=== PATIENT | female | born 2005 ===

== ENCOUNTER 2024-10-22 11:29 | Emergency (ER) | payer BC, SELFPAY ==
--- NOTE | ~2024-10-22 | US_ITS ---
CLINICAL HISTORY: severe L pelvic pain US pelvis transabdominal and transvaginal with Doppler Comparison: None provided Findings: Anteverted uterus is 6.2 cm length. Normal myometrium. Endometrium 12 mm thickness. Right ovary 3.2 x 2.6 x 2.7 cm. Left ovary 2.6 x 2.2 x 1.6 cm. Normal color Doppler of both ovaries. There is a 2.8 x 1.7 x 2.1 cm simple appearing right-sided paraovarian cyst. No free fluid. IMPRESSION: 1. 2.8 cm right-sided paraovarian cyst of unlikely significance. 2. No acute abnormality of the pelvis. This document has been electronically signed by: Sofya Mccarty MD on 10/22/2024 18:45:08
[2024-10-22 11:43] VITALS: BP 92/59; PULSE 82; RESP 18; TEMP 37.2; O2SAT 99; BMI 19.4
--- NOTE | 2024-10-22 11:45 | ED.GENADULT ---
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 She denies any issues such as dysuria, fevers, diarrhea, vaginal discharge or concern for STI. She reports pain today is much worse - she has nausea and cannot get comfortable. She has no hx of stones or cysts MD complaint: LLQ pain Onset (ago): day(s) (1) Location: abdomen Radiation: non-radiation Severity: severe Quality: stabbing Pain Consistency: constant Relieving factors: none Exacerbating factors: movement Associated symptoms: nausea/vomiting Related Data Previous Rx's ?Medication ?Instructions ?Recorded ibuprofen 600 mg tablet 600 mg PO Q6H PRN pain #30 tabs 10/22/24 ondansetron 4 mg disintegrating 4 mg PO Q8H PRN nausea and 10/22/24 tablet vomiting #20 tabs Allergies Allergy/AdvReac Type Severity Reaction Status Date / Time No Known Allergies Allergy Verified 10/22/24 11:45 Review of Systems Review of Systems: Constitutional : No Weight loss, No Fever, No Chills ENT/Mouth : No sore throat, No Rhinorrhea Eyes: No Swelling, No Redness Cardiovascular : No Chest Pain, No SOB, NoEdema Respiratory : No Cough, No Sputum, No Wheezing Gastrointestinal : Positive Nausea, no Vomiting, no Diarrhea, positive abdominal Pain, No Hematochezia, No Melena Genitourinary : No Dysuria, No Urinary Frequency, No Hematuria, No Urgency Musculoskeletal : No joint pain, No Myalgias, No Joint Swelling Skin : No Skin Lesions, No rash Neuro : No Weakness, No Numbness, No Dizziness, No Headache All other systems reviewed and are negative. [facility] [place] Past Medical History Attestation statement: The following information was validated with the patient. Source: old records reviewed Medical History No pertinent past medical history Social History Social History Smoked in Last 30 Days: No Use of substances other than those prescribed or required for medical reasons: No Advance Directives: No Advance Directives Information Provided: Yes Patient : No Physical Exam ED Vital Signs: Vital Signs - 24 hr 10/22/24 11:43 10/22/24 15:31 10/22/24 16:08 Temperature 98.9 F 98.4 F 98.4 F Pulse Rate 82 85 85 Respiratory Rate 18 16 16 Blood Pressure 92/59 L 114/75 114/75 Pulse Oximetry 99 100 100 Oxygen Delivery Method Room Air Room Air Room Air 10/22/24 18:32 Temperature 98.3 F Pulse Rate 81 Respiratory Rate 16 Blood Pressure 110/73 Pulse Oximetry 100 Oxygen Delivery Method Room Air BMI result Body Mass Index 19.4 Appearance: Alert. Oriented X3. No acute distress. Eyes: Pupils equal, round and reactive to light. ENT: Pharynx normal. Neck: Normal inspection. Neck supple. CVS: Normal heart rate and rhythm. Pulses normal. Respiratory: No respiratory distress. Breath sounds normal. Abdomen: Soft and moderate LLQ pain no rebound Skin: Skin warm and dry. Normal skin color. Normal skin turgor. Extremities: No lower extremity edema. No calf ttp Neuro: Oriented X 3. No motor deficit. No sensory deficit. CN2-12 intact Course Course Course Narrative: This is a rapid medical exam performed by Dima Mcclure NP: Additional HPI, ROS, PE not included below will be deferred to primary provider. Patient is a 19y/o Romanian speaking F presenting to the ED with complaint of LLQ abdominal pain for a few months, but yesterday pain worsened. States pain has been intermittent. Denies association with menses. Nausea without vomiting or diarrhea. Not currently sexually active, denies chance of . Plan: labs, UA Medications Administered Discontinued Medications Generic Name Dose Route Start Last Admin Trade Name Freq PRN Reason Stop Dose Admin Hydrocodone Bitart/Acetaminophen 1 tab 10/22/24 16:23 10/22/24 18:18 Hydrocodone Bit/Acetam 5/325 Tablet PO 10/22/24 16:24 1 tab ONCE ONE Administration Ondansetron HCl 4 mg 10/22/24 16:23 10/22/24 17:26 Ondansetron Odt 4 Mg Tab.Rapdis TRANSLINGU 10/22/24 16:24 4 mg ONCE ONE Administration Medical Decision Making Medical Decision Making MDM Narrative: 19 yo female with no sig PMH here with c/o left lower pelvic pain at this time she will need labs, UA, preg test, US at first to evaluate for ovarian cyst. She denies STI symptoms or concerns. If US negative may proceed with further imaging of CT scan for renal colic, mass, diverticular ds, intussusception. PO pain control ordered. Differential Diagnosis Differential Diagnoses: The differential diagnosis associated with the presentation includes ovarian cyst, renal colic, constipation Admission/Observation Consideration of admission/observation: Escalation of care including admission/observation considered work up reassuring pain free stable for DC with precautions Lab Data [facility] Lab Attestation statement: I reviewed the patient's lab results. 10/22/24 13:28 10/22/24 13:28 Labs: Lab Results 10/22/24 10/22/24 Range/Units 13:28 16:06 WBC 6.3 (4.8-10.8) X10*3/uL RBC 4.77 (4.20-5.50) X10*6/uL Hgb 12.6 (12.0-16.0) g/dl Hct 37.2 (37.0-47.0) % MCV 78.0 L (80.0-98.0) fL MCH 26.4 L (27.0-33.0) pg MCHC 33.9 (31.0-35.0) g/dl RDW 14.6 (11.0-16.0) % Plt Count 250 (160-400) X10*3/uL MPV 12.5 H (9.4-12.3) fL Immature Gran % (Auto) 0.2 (0.0-0.4) % Neut % (Auto) 55.7 (45-73) % Lymph % (Auto) 34.1 (20-40) % [place] % (Auto) 7.8 (2-11) % Eos % (Auto) 1.6 (0-4) % Baso % (Auto) 0.6 (0-2) % Lymph # (Auto) 2.2 (1.2-4.9) X10*3/uL [place] # (Auto) 0.5 (0.1-1.2) X10*3/uL Eos # (Auto) 0.1 (0.0-0.4) X10*3/uL Baso # (Auto) 0.0 (0.0-0.2) X10*3/uL Abs Immat Gran (auto) 0.01 (0.00-0.03) X10*3/uL Absolute Neuts (auto) 3.5 (2.0-8.3) x10*3/uL Absolute Nucleated RBC 0.000 (0.0-0.012) X10*3/uL Nucleated RBC % (auto) 0.0 (0.0-0.2) /100WBC Sodium 139 (135-145) mmol/L Potassium 4.2 (3.3-5.1) mmol/L Chloride 107 (96-108) mmol/L Carbon Dioxide 27 (22-29) mmol/L Anion Gap 9 L (12-20) BUN 13 (9-16) mg/dL Creatinine 0.68 (0.5-1.4) mg/dL Estim Creat Clear Calc 110.4 Estimated GFR > 60 Random Glucose 80 (60-115) mg/dL Calcium 9.4 (8.4-10.2) mg/dL Total Bilirubin 0.4 (0.0-1.0) mg/dL AST 18 (5-31) U/L ALT 18 (0-31) U/L Alkaline Phosphatase 52 (39-117) U/L Total Protein 7.0 (6.5-8.0) g/dL Albumin 4.6 (3.5-5.0) g/dL Lipase 23 (8-78) U/L Beta HCG, Quant < 2 mIU/mL Urine Color Yellow Urine Appearance Turbid Urine pH 7.0 (5.0-9.0) Ur Specific [place] 1.020 (1.005-1.025) Urine Protein Negative (Neg-Trace) mg/dL Urine Glucose (UA) Negative (Negative) mg/dL Urine Ketones Negative (Negative) mg/dL Urine Blood Negative (Negative) Urine Nitrite Negative (Negative) Ur Leukocyte Esterase Trace H (Negative) Urine RBC 0-2 (0-2) /HPF Urine WBC 0-5 (0-5) /HPF Ur Squamous Epith Cells 0-2 (0-2) /HPF Urine Bacteria Trace (None Seen) Hyaline Casts 0-2 (0-2) /LPF Independent Interpretation I performed an independent interpretation of an: Ultrasound (R sided ovarian cyst) Radiology Impression Discussion of test interpretation with radiology: I have reviewed the radiologist's reading. Independent Historian Clinical information obtained from an independent historian. History obtained from or confirmed by: Parent External Record Review External record reviewed: Outpatient record Prescription Management I considered prescription management with: Pain Medication and Other Discharge Plan Discharge Clinical Impression: Abdominal pain Qualifiers: Abdominal location: left lower quadrant Qualified Code(s): R10.32 - Left lower quadrant pain Patient Disposition: Home, Self-Care Instructions: Abdominal Pain (ED) Additional Instructions: labs reassuring test negative at this time monitor your symptoms and return for worsening pain, fevers, vomiting, change in stools or any other concerns repeat ultrasound in 2 months Prescriptions: New ibuprofen 600 mg tablet 600 mg PO Q6H PRN (Reason: pain) Qty: 30 0RF ondansetron 4 mg tablet,disintegrating 4 mg PO Q8H PRN (Reason: nausea and vomiting) Qty: 20 0RF Print Language: Romanian
[2024-10-22 13:33] LABS: MANUAL DIFF FLAG NO
[2024-10-22 13:35] LABS: Hematocrit 37.2 % (37.0-47.0); Hemoglobin 12.6 g/dl (12.0-16.0); Imm Gran Abs Auto 0.01 X10*3/uL (0.00-0.03); Imm Gran Pct Auto 0.2 % (0.0-0.4); Lymphocytes Absolute Auto 2.2 X10*3/uL (1.2-4.9); Mean Corpuscular HGB Conc 33.9 g/dl (31.0-35.0); Mean Corpuscular Hemoglobin 26.4 pg (27.0-33.0); Mean Corpuscular Volume 78.0 fL (80.0-98.0); NRBC Abs Auto 0.000 X10*3/uL (0.0-0.012); NRBC Pct Auto 0.0 /100WBC (0.0-0.2); Platelet Count 250 X10*3/uL (160-400); Red Blood Count 4.77 X10*6/uL (4.20-5.50); White Blood Count 6.3 X10*3/uL (4.8-10.8)
[2024-10-22 14:05] LABS: Alanine Aminotransferase 18 U/L (0-31); Albumin Level 4.6 g/dL (3.5-5.0); Alkaline Phosphatase 52 U/L (39-117); Anion Gap 9 (12-20); Aspartate Amino Transferase 18 U/L (5-31); Blood Urea Nitrogen 13 mg/dL (9-16); Calcium 9.4 mg/dL (8.4-10.2); Carbon Dioxide 27 mmol/L (22-29); Chloride 107 mmol/L (96-108); Creatinine Clr Calc Pharmacy 110.4; Estimated Glomerular Filt Rate > 60; Lipase 23 U/L (8-78); Potassium 4.2 mmol/L (3.3-5.1); Sodium 139 mmol/L (135-145); Total Protein 7.0 g/dL (6.5-8.0)
[2024-10-22 15:31] VITALS: BP 114/75; PULSE 85; RESP 16; TEMP 36.9; O2SAT 100
[2024-10-22 16:08] VITALS: BP 114/75; PULSE 85; RESP 16; TEMP 36.9; O2SAT 100
[2024-10-22 16:14] LABS: Appearance Urine Turbid; Glucose Urine UA Negative (Negative); PH 7.0 (5.0-9.0); Specific Gravity - Urine 1.020 (1.005-1.025); UMIC TRIGGER UACC YES
[2024-10-22] MEDS: HYDROcodone Bit/Acetam 5/325 TABLET 1 TAB PO (18:18)
[2024-10-22 18:32] VITALS: BP 110/73; PULSE 81; RESP 16; TEMP 36.8; O2SAT 100
[2024-10-22 19:21] VITALS: BP 110/73; PULSE 81; RESP 16; TEMP 36.8; O2SAT 100
== END 2024-10-22 19:22 | disposition home or self-care (01) ==
PROVIDERS: Registered Nurse Emergency; Emergency Provider Emergency Medicine
DX: R10.32 Left lower quadrant pain (principal); R11.0 Nausea
CPT/HCPCS: 36415; 76830; 76856; 80053; 81001; 83690; 84702; 85025; 93975; 99284

== ENCOUNTER → 2024-10-22 16:23 | Outpatient (BNV) | payer BC, SELFPAY | PROVIDERS: Emergency Provider Emergency Medicine; Visit Provider Radiology Diagnostic Radiology | DX: R10.2 Pelvic and perineal pain (principal) | CPT/HCPCS: 76830; 76856 ==

== ENCOUNTER 2024-10-23 16:14 | Emergency (ER) | payer BC, OTHER, SELFPAY ==
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
[2024-10-23 16:27] VITALS: BP 140/74; PULSE 74; O2SAT 100
[2024-10-23 16:30] VITALS: BP 115/70; PULSE 99; RESP 18; TEMP 36.9; O2SAT 100; BMI 22.5
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
[2024-10-23 18:34] VITALS: BP 101/64; PULSE 80; RESP 20; TEMP 36.8; O2SAT 98
[2024-10-23 20:00] VITALS: BP 101/64; PULSE 80; RESP 20; TEMP 36.8; O2SAT 98
== END 2024-10-23 20:01 | disposition home or self-care (01) ==
PROVIDERS: Emergency Provider Emergency Medicine
DX: S13.4XXA Sprain of ligaments of cervical spine, initial encounter (principal); R51.9 Headache, unspecified; V49.88XA Car occupant (driver) (passenger) injured in other specified transport accidents, initial encounter; Y93.89 Activity, other specified; Y92.488 Other paved roadways as the place of occurrence of the external cause; Y99.8 Other external cause status
CPT/HCPCS: 70450; 71045; 72125; 99283; 99284

== ENCOUNTER → 2024-10-23 16:49 | Outpatient (BNV) | payer BC, SELFPAY | PROVIDERS: Emergency Provider Emergency Medicine; Visit Provider Radiology Diagnostic Radiology | DX: M54.2 Cervicalgia (principal); R51.9 Headache, unspecified; S29.9XXA Unspecified injury of thorax, initial encounter | CPT/HCPCS: 70450; 71045; 72125 ==